=== PATIENT | female | born 1980 | race Caucasian/White ===

== ENCOUNTER 2016-12-23 19:15 | Emergency (ER) | payer OTHER ==
--- NOTE | ~2016-12-23 | CR72 ---
[facility]. [facility] A Service of [facility] & [facility] RADIOLOGY TEXT RESULTS PATIENT: JOSE FONSECA LOCATION: SED : 84 UNIT #: [id number] AGE: [address]: Massimo Lawson SEX: F ORDER DR: [id number] [address] [address] [id number] MR#: [id number] Acc #: [id number] NAME: JOSE FONSECA : 1980 SEX: F STUDY DATE/TIME: 12/23/2016 19:21 UNIT: SED ROOM: STUDY DESCRIPTION: CR Chest Single View Portable Attending Physician: Massimo Lawson P.A.-C. Ordering Physician: Massimo Lawson P.A.-C. Primary Care Physician: Noni Camejo M.D. MEDICAL IMAGING REPORT This report is preliminary unless electronic signature is present. EXAM Portable chest, 12/23/2016 HISTORY Cough, fever and vomiting x2 days. FINDINGS A single AP portable view of the chest shows both lungs to be clear. The heart is normal in size. The mediastinal contour is normal. No significant bone abnormalities are seen. IMPRESSION Normal portable chest. Dictated by... Mikal King M.D. THIS IS AN ELECTRONICALLY VERIFIED REPORT Mikal King M.D. at 12/24/2016 2:41 PM DFPadmini/faye TD: 12/24/2016 01:16 JOB #: [id number] MEDICAL IMAGING REPORT Page 1 of 1
[2016-12-23 19:14] LABS: URINE SOURCE CLEAN CATCH
[~2016-12-23 19:15] MED LIST: ALKA-SELTZER P1 EA11; FLEXERIL10 MG PO; MACROBID100 M1 PO; MOTRIN20 MG/ML; NO MEDICATIONS; ROBAXIN500 MG PO; VOLTAREN75 MG PO; ZOFRAN
[2016-12-23 19:18] LABS: URINE APPEARANCE HAZY; URINE BLOOD 3+ (NEG); URINE COLOR RED; URINE GLUCOSE NEG (NORM); URINE LEUKOCYTE ESTERASE 1+ (NEG); URINE NITRATE NEG (NEG); URINE PROTEIN 2+ (NEG); URINE SPECIFIC GRAVITY >=1.030 (1.003-1.035)
[2016-12-23 19:21] LABS: MICRO INDICATED? YES; URINE BILIRUBIN NEG (NEG); URINE KETONE 2+ (NEG)
[2016-12-23 19:22] LABS: CULTURE INDICATED? YES; URINE BACTERIA 1+ (NEG); URINE RBC 100-200 /[HPF] (0-2)
[2016-12-23 19:23] LABS: URINE SQUAMOUS EPITHELIAL CELL FEW /[HPF]
[2016-12-23 19:43] LABS: INFLUENZA A POS (NEG); INFLUENZA B NEG (NEG)
[2016-12-23 19:55] LABS: BASOPHIL% 0.6 % (0-2.5); EOSINOPHIL% 0.2 % (0.0-7.0); HEMATOCRIT 43.2 % (35.0-45.0); HEMOGLOBIN 14.5 gm/dL (12.0-16.0); LYMPHOCYTE# 0.4 X10e3 (1.0-3.5); LYMPHOCYTE% 9.2 % (17.0-45.0); MEAN CELL VOLUME 89.1 FL (83-96); MEAN CORPUSCULAR HEMOGLOBIN 29.8 PG (28-34); MEAN CORPUSCULAR HGB CONC 33.5 g/dL (30-36); MEAN PLATELET VOLUME 9.9 FL (6.5-11.5); MONOCYTE# 0.3 X10e3 (0-1.0); MONOCYTE% 7.1 % (3.0-12.0); NEUTROPHIL# 3.7 X10e3 (1.5-7.1); NEUTROPHIL% 82.9 % (40-75); PLATELET COUNT 147 X10e3 (140-420); RED BLOOD COUNT 4.85 X10e (3.90-5.30); WHITE BLOOD COUNT 4.4 X10e3 (4.0-10.5)
[2016-12-23 19:56] LABS: DIFF IND NO
[2016-12-23 20:11] LABS: ALBUMIN SERUM 4.3 g/dL (3.5-5.0); BILIRUBIN, DIRECT 0.1 mg/dL (0.0-0.2); BILIRUBIN,INDIRECT 0.4 mg/dL (0.0-0.9); BILIRUBIN,TOTAL 0.5 mg/dL (0.2-2.0); BUN/CREATININE RATIO 17.5; CALCIUM SERUM 8.7 mg/dL (8.4-10.2); CREATININE SERUM 0.8 mg/dL (0.6-1.4); GLOM FILT RATE Estimated 96.3 mL/min (>60); POTASSIUM 3.6 mmol/L (3.5-5.1); PROTEIN TOTAL SERUM 7.7 g/dL (6.0-8.3)
== END 2016-12-23 20:51 | disposition home or self-care (01) ==
LOC: SED 19:15
PROVIDERS: Physician Assistant
DX: J10.1 Influenza due to other identified influenza virus with other respiratory manifestations (principal); F17.200 Nicotine dependence, unspecified, uncomplicated; Z79.899 Other long term (current) drug therapy; Z79.1 Long term (current) use of non-steroidal anti-inflammatories (NSAID); Z88.6 Allergy status to analgesic agent
CPT/HCPCS: 36415; 71010; 80048; 80076; 81003; 83690; 84703; 85025; 86308; 87086; 87651; 87804; 96374; 96375; 99284; J1885; J2405

== ENCOUNTER → 2017-02-05 | Outpatient (CLI) | payer OTHER ==
--- NOTE | ~2017-02-05 | US98 ---
[facility] A Service of [facility] RADIOLOGY TEXT RESULTS PATIENT: JOSE FONSECA LOCATION: SG : 84 UNIT #: [id number] AGE: [address]: HEATHER VELA SEX: F ORDER DR: [id number] [place] [id number] O MR#: [id number] Acc #: [id number] NAME: JOSE FONSECA : 1980 SEX: F STUDY DATE/TIME: 02/05/2017 8:41 UNIT: SG ROOM: STUDY DESCRIPTION: US Pelvic Non-OB Complete Attending Physician: Heather Vela M.D. Referring Physician: Benny Camejo M.D. Ordering Physician: Heather Vela M.D. Primary Care Physician: Heather Vela M.D. MEDICAL IMAGING REPORT This report is preliminary unless electronic signature is present. EXAM Pelvic ultrasound. HISTORY Right-sided pelvic pain. Patient underwent IUD insertion on 12/18/2016. This IUD was removed 01/29/2017, and at that point, the patient reported that her pain went away. TECHNIQUE Grayscale, color Doppler, and spectral Doppler wave form analysis was performed through the pelvis, both transabdominally and transvaginally. FINDINGS The uterus appears unremarkable and is homogeneous in echotexture. Endometrium measures up to about 1.3 cm, which is probably within normal limits for this 36-year-old woman. Patient does have a simple cyst on the left ovary. The right ovary appears normal. Normal color Doppler flow is seen within both ovaries. There is an echogenic focus with extensive shadowing seen within the right adnexa. Clinical significance is uncertain; no corresponding lesion was seen on a prior CT from April 2007. IMPRESSION 1. Endometrial thickness is at the upper limits of normal, but it is still probably acceptable in a 36-year-old woman. 2. Left ovarian cyst. 3. Echogenic focus seen within the right adnexa with extensive posterior shadowing. Clinical significance is uncertain; it was not present on a prior CT from April 2007. Given the patient has had complaints of right-sided pain, I would suggest a further evaluation with CT of the abdomen and pelvis. [facility] A Service of [facility] RADIOLOGY TEXT RESULTS PATIENT: JOSE FONSECA LOCATION: [facility] : 84 UNIT #: [id number] AGE: [address]: HEATHER VELA SEX: F ORDER DR: Dictated by... Dary Mann M.D. THIS IS AN ELECTRONICALLY VERIFIED REPORT Dary Mann M.D. at 02/06/2017 4:12 PM NAIN/emiliano TD: 02/06/2017 14:06 JOB #: [id number] MEDICAL IMAGING REPORT Page 1 of 1
== END | disposition home or self-care (01) ==
LOC: SGUS 08:26
DX: Z30.431 Encounter for routine checking of intrauterine contraceptive device (principal); R10.2 Pelvic and perineal pain; R93.8 Abnormal findings on diagnostic imaging of other specified body structures; N83.202 Unspecified ovarian cyst, left side
CPT/HCPCS: 76830; 76856